=== PATIENT | male | born 1980 | race Caucasian/White ===

== ENCOUNTER 2024-12-18 01:25 | Emergency (ER) | payer MEDICAID, OTHER, SELFPAY ==
[~2024-12-18] VITALS: Ht 172.7 cm; Wt 72.7 kg
[2024-12-18] MEDS ORDERED: LIDOCAINE 1% SDV 30 ML VIAL SC SCH (03:50)
[2024-12-18] MEDS: LIDOCAINE 1% MDV 20 ML VIAL SC ONE (04:50)
[2024-12-18] MEDS: TETANUS/DIPHTH/ACEL. PERTUSSIS 0.5 ML SYR IM ONE (05:01)
[2024-12-18 08:34] VITALS: O2SAT 100
[2024-12-18 08:41] VITALS: BP 154/100; TEMP 98.2
[2024-12-18] MEDS ORDERED: BACI500O8 TOP (08:47)
== END 2024-12-18 08:56 | disposition home or self-care (01) ==
LOC: M ED 01:25
DX: S00.83XA Contusion of other part of head, initial encounter (principal); S01.111A Laceration without foreign body of right eyelid and periocular area, initial encounter; Y04.8XXA Assault by other bodily force, initial encounter; R22.0 Localized swelling, mass and lump, head; F19.10 Other psychoactive substance abuse, uncomplicated; F10.10 Alcohol abuse, uncomplicated; Z23 Encounter for immunization; Z79.899 Other long term (current) drug therapy; Y92.9 Unspecified place or not applicable; Y99.9 Unspecified external cause status; Y93.89 Activity, other specified